=== PATIENT | male | born 1945 | race Caucasian/White ===

== ENCOUNTER → 2016-06-30 | Outpatient (CLI) | payer MEDICARE, OTHER ==
--- NOTE | 2016-06-30 11:09 | RAD ---
Bilateral lower extremity arterial ultrasound, 06/30/2016: History: Peripheral vascular disease, diabetes, hypertension Duplex evaluation of the major arteries in the right lower extremity was performed including grayscale, color-flow and spectral Doppler analysis. There are mild to moderate scattered, partially calcified atherosclerotic plaques bilaterally. On the right, the common femoral and superficial femoral arteries demonstrate biphasic Doppler waveforms. No significant focal velocity acceleration is seen on those vessels to suggest high-grade focal stenosis. The popliteal artery also demonstrates a biphasic Doppler waveform. In the right lower leg the peroneal artery could not be visualized. The posterior tibial Doppler waveform is monophasic. It is quite dampened distally. The right anterior tibial Doppler waveform is biphasic. The right dorsalis pedis artery is patent demonstrating a monophasic Doppler waveform. On the left, the common femoral and superficial femoral arteries demonstrate biphasic Doppler waveforms. No significant focal velocity acceleration is seen to suggest high-grade focal stenosis in those vessels. The left popliteal artery also demonstrates a biphasic Doppler waveform. In the left lower leg, patent anterior tibial, posterior tibial and peroneal arteries are visible demonstrating biphasic Doppler waveforms. The distal left posterior tibial Doppler waveform becomes monophasic. The left dorsalis pedis artery is patent demonstrating a monophasic Doppler waveform. IMPRESSION: 1. Mild to moderate scattered atherosclerotic plaquing bilaterally. 2. No duplex evidence of high-grade femoral-popliteal stenosis on either side. 3. Probable peroneal artery occlusion in the right lower leg. 4. Mild degradation of the distal Doppler waveforms, worse on the right.
== END | disposition home or self-care (01) ==
LOC: US 08:40
PROVIDERS: ATTEND Family Medicine
DX: Z00.01 Encounter for general adult medical examination with abnormal findings (principal); I70.8 Atherosclerosis of other arteries; I73.89 Other specified peripheral vascular diseases; I10 Essential (primary) hypertension; E11.8 Type 2 diabetes mellitus with unspecified complications; E71.19 Other disorders of branched-chain amino-acid metabolism; Z87.891 Personal history of nicotine dependence
CPT/HCPCS: 93925

== ENCOUNTER → 2017-06-04 | Outpatient (CLI) | payer MEDICARE, OTHER ==
--- NOTE | 2017-06-05 09:20 | RAD ---
Bilateral lower extremity arterial ultrasound, 06/04/2017: History: Peripheral vascular disease Duplex evaluation of the major arteries in both lower extremities was performed including grayscale, color-flow and spectral Doppler analysis. There are moderately severe scattered atherosclerotic plaques bilaterally. The right common femoral artery demonstrates a biphasic Doppler waveform with a peak systolic velocity of 283 cm/s. Color imaging demonstrates moderate plaquing to this region. The right femoral Doppler waveform becomes monophasic at and distal to the mid femoral artery level. No specific focal high-grade femoral-popliteal stenosis was identified. Patent anterior tibial, posterior tibial and peroneal arteries are present in the right lower leg demonstrating monophasic Doppler waveforms. The right dorsalis pedis Doppler waveform is also monophasic. On the left, the common femoral Doppler waveform is triphasic. The peak systolic velocity at that level is 183 cm/s. The left femoral Doppler waveform becomes monophasic at and distal to the upper thigh level. No high-grade focal femoral-popliteal stenosis is identified on the left. Patent posterior tibial and anterior tibial arteries are evident in the left lower leg demonstrating monophasic Doppler waveforms. A patent peroneal artery could not be visualized. The left dorsalis pedis artery is patent with a monophasic Doppler waveform. A high velocity 191 cm/s was identified in the left dorsalis pedis artery suggesting moderate stenosis at that level. IMPRESSION: 1. Moderately severe scattered atherosclerotic plaquing bilaterally. 2. Elevated velocity in the right common femoral artery raises the possibility of moderate stenosis at that level. 3. Degradation of the Doppler waveforms at and distal to the superficial femoral artery levels bilaterally. 4. No focal high-grade femoral-popliteal stenosis was identified.. 5. Occlusion of the peroneal artery in the left lower leg. 6. Moderate focal stenosis in the left dorsalis pedis artery.
== END | disposition home or self-care (01) ==
LOC: US 13:32
PROVIDERS: ATTEND Family Medicine
DX: I70.202 Unspecified atherosclerosis of native arteries of extremities, left leg (principal)
CPT/HCPCS: 93925

== ENCOUNTER → 2017-07-17 | Outpatient (CLI) | payer MEDICARE, OTHER ==
--- NOTE | 2017-07-17 13:03 | RAD ---
EXAM: Dual energy x-ray absorptiometry (DEXA). HISTORY: 9-year-old male presents with a fracture. COMPARISON: 08/01/2011. TECHNIQUE: Dual energy x-ray absorptiometry of the lumbar spine and right hip was performed. Calculation of bone mineral density based on standard deviations above or below the expected young adult normal value (T-score) was completed. FINDINGS: The average bone mineral density in the 1st through 4th lumbar vertebrae is 1.126 g/cmxcm, corresponding with a T-score of -0.8. There has been a 1.0% decrease in density of the lumbar spine compared to the prior study. The average total bone mineral density in the right femoral neck is 0.802 g/cmxcm, corresponding with a T-score of -2.1. IMPRESSION: 1. Normal bone mineral density measured at the lumbar spine. 2. Osteopenia measured at the right femoral neck. Note: Definitions established by the World Health Organization: 1. Normal: T-score is -1.0 or above. 2. Osteopenia: T-score is between -1.0 and -2.5 . 3. Osteoporosis: T-score is -2.5 or below. Electronically signed by: Dunia Lozoya MD (07/17/2017 12:59 PM) [facility]
== END | disposition home or self-care (01) ==
LOC: DXRAD 10:17
PROVIDERS: ATTEND Family Medicine
DX: Z13.820 Encounter for screening for osteoporosis (principal); M85.89 Other specified disorders of bone density and structure, multiple sites; E11.69 Type 2 diabetes mellitus with other specified complication; E11.65 Type 2 diabetes mellitus with hyperglycemia
CPT/HCPCS: 77080

== ENCOUNTER → 2018-02-19 | Outpatient (CLI) | payer MEDICARE, OTHER ==
--- NOTE | 2018-02-19 14:32 | CARD ---
MR#: [id number] Date of Study: 02/19/2018 Ordering Physician: CASI SU, Referring Physician: CASI SU, Tech: Tatiana Guerra OLGA APPROVED REPORT EXAM: Two-dimensional and M-mode echocardiogram with Doppler and color Doppler. Other Information Quality : Technically LimitedHR: 100bpm Rhythm : TachycardiaTechnically limited study due to body habitus. INDICATION Arrhythmia 2D DIMENSIONS RVDd3.2 (2.9-3.5cm)Left Atrium(2D)4.1 (1.6-4.0cm) IVSd1.0 (0.7-1.1cm)Aortic Root(2D)3.1 (2.0-3.7cm) LVDd6.3 (3.9-5.9cm)LVOT Diameter2.2 (1.8-2.4cm) PWd1.1 (0.7-1.1cm)LVDs5.3 (2.5-4.0cm) FS (%) 15.4 %SV64.6 ml LVEF(%)31.9 (>50%) M-Mode DIMENSIONS Left Atrium(MM)4.77 (2.5-4.0cm)Aortic Root3.47 (2.2-3.7cm) Aortic Valve AoV Peak Checo.143.2cm/sAoV VTI28.7cm AO Peak GR.8.2mmHgLVOT Peak Checo.88.3cm/s LVOT VTI 17.42cmAO Mean GR.4mmHg HEATHER (VMAX)2.27fj0VXI (VTI)2.33cm2 Mitral Valve MV E Eqcurcdp02.5cm/sMV DECEL [id number] MV A Xdvvtdjf099.2cm/sE/A Ratio0.7 MV A Dcosrymv99hh Pulmonary Valve PV Peak Vgdxpkwl191.4cm/sPV Peak Grad.4mmHg LEFT VENTRICLE The Left Ventricle is mildly dilated. There is normal left ventricular wall thickness. The left ventr icular systolic function is moderately impaired. The Ejection Fraction is 35%. Abnormal septal motion probably from conduction abnormality. Transmitral Doppler flow pattern is Grade I-abnormal relaxatio n pattern. RIGHT VENTRICLE The right ventricle is normal size. There is normal right ventricular wall thickness. The right ventr icular systolic function is normal. ATRIA The left atrium is moderately dilated. The right atrium is mildly dilated. The interatrial septum is intact with no evidence for an atrial septal defect or patent foramen ovale as noted on 2-D or Dopple r imaging. AORTIC VALVE The aortic valve is normal in structure and function. The aortic valve is trileaflet. Doppler and Col or Flow revealed no significant aortic regurgitation. There is no significant aortic valvular stenosi s. MITRAL VALVE The mitral valve is normal in structure and function. There is no evidence of mitral valve prolapse. There is no mitral valve stenosis. Doppler and Color-flow revealed trace mitral regurgitation. TRICUSPID VALVE The tricuspid valve is normal in structure and function. Doppler and Color Flow revealed no tricuspid valve regurgitation noted. There is no tricuspid valve prolapse or vegetation. There is no tricuspid valve stenosis. PULMONIC VALVE Pulmonic valve not well visualized. GREAT VESSELS The aortic root is normal in size. The ascending aorta is normal in size. The IVC is normal in size a nd collapses >50% with inspiration. PERICARDIAL EFFUSION There is no evidence of significant pericardial effusion. Critical Notification Critical Value: No <Conclusion> The left ventricular systolic function is moderately impaired. The Ejection Fraction is 35%. Abnormal septal motion probably from conduction abnormality. Transmitral Doppler flow pattern is Grade I-abnormal relaxation pattern. The left atrium is moderately dilated. Doppler and Color-flow revealed trace mitral regurgitation. There is no evidence of significant pericardial effusion. Signed by : Juanito Iglesias, Electronically Approved : 02/19/2018 14:30:01
== END | disposition home or self-care (01) ==
LOC: ECHO 12:35
PROVIDERS: ATTEND Family Medicine
DX: R00.8 Other abnormalities of heart beat (principal)
CPT/HCPCS: 93306

== ENCOUNTER → 2018-02-28 | Outpatient (CLI) | payer MEDICARE, OTHER ==
--- NOTE | 2018-03-01 08:21 | RAD ---
Renal ultrasound, 02/28/2018: HISTORY: Chronic kidney disease The right kidney measures 10.7 cm in length while left kidney measures 11.3 cm. There is no evidence of hydronephrosis. There appear to be 2 tiny parapelvic renal cysts on the left, the largest of which measures 1.4 cm. The renal parenchymal echogenicity is within normal limits. The partially filled urinary bladder is unremarkable. IMPRESSION: 1. Small left renal cysts. 2. No evidence of renal obstruction. Electronically signed by: Hunter Davison MD (03/01/2018 8:16 AM) [facility]
== END | disposition home or self-care (01) ==
LOC: US 14:46
PROVIDERS: ATTEND Internal Medicine Nephrology
DX: I12.9 Hypertensive chronic kidney disease with stage 1 through stage 4 chronic kidney disease, or unspecified chronic kidney disease (principal); E11.22 Type 2 diabetes mellitus with diabetic chronic kidney disease; N18.3 Chronic kidney disease, stage 3 (moderate); N28.1 Cyst of kidney, acquired
CPT/HCPCS: 76770

== ENCOUNTER 2018-06-01 17:38 | Emergency (ER) | payer MEDICARE, OTHER ==
[~2018-06-01] VITALS: Ht 180.3 cm; Wt 128.4 kg
[2018-06-01 17:40] VITALS: BP 163/77
--- NOTE | 2018-06-01 17:56 | ED.ADGEN ---
Past History Past Medical History: CAD, CHF, Diabetes, Hypertension, Other Past Surgical History: Pacemaker Smoking: Quit Greater Than 1 Year Adult General Chief Complaint Chief Complaint ".. I got this pacer thing put in on 05/28/18.. and now the suture line is draining.. and the area under the tape is red..." HPI HPI Patient is a 73 year old male who presents with visit for wound check. Area of ICD implantation is red and inflamed. Serous/ bloody discharge from suture line. No striations to the rest of the chest no adenopathy. Area around implantation not unduly tender. Patient has known diabetes, CHF, hypertension and coronary artery disease. Patient normally follows with Dr. Masterson. OpSite dressing removed and area cleaned. Replace the sterile gauze to sore be continued drainage. Will start on Bactrim DS twice a day. Must call Sunday morning for a follow-up and recheck of ICD implantation site. Review of Systems Review of Systems Constitutional: Denies fever or chills [] Eyes: Denies change in visual acuity, redness, or eye pain [] HENT: Denies nasal congestion or sore throat [] Respiratory: Denies cough or shortness of breath [] Cardiovascular: No additional information not addressed in HPI [] GI: Denies abdominal pain, nausea, vomiting, bloody stools or diarrhea [] : Denies dysuria or hematuria [] Musculoskeletal: Denies back pain or joint pain [] Integument: Denies rash or skin lesions []drainage and inflammation at ICD site Neurologic: Denies headache, focal weakness or sensory changes [] Endocrine: Denies polyuria or polydipsia [] All other systems were reviewed and found to be within normal limits, except as documented in this note. Family History Family History Noncontributory Current Medications Current Medications Current Medications Medications (Trade) Dose Ordered Sig/Kendrick Start Time Stop Time Status Last Admin Dose Admin Diphtheria/ Tetanus/Acell Pertussis (Boostrix) 0.5 ml ONCE ONCE 06/01/18 19:30 06/01/18 19:32 DC Trimethoprim/ Sulfamethoxazole (Bactrim Ds) 1 tab 1X ONCE 06/01/18 18:30 06/01/18 18:32 DC 06/01/18 19:00 1 TAB Allergies Allergies Allergies Coded Allergies Type Severity Reaction Last Updated Verified lisinopril Allergy Severe RASH 04/18/18 Yes Physical Exam Physical Exam Constitutional: , no acute distress, non-toxic appearance. [] HENT: Normocephalic, atraumatic, bilateral external ears normal, oropharynx moist, no oral exudates, nose normal. [] Eyes: PERRLA, EOMI, conjunctiva normal, no discharge. [] Glasses. Neck: Normal range of motion, no tenderness, supple, no stridor. More than 17 inches circumference] Cardiovascular:Heart rate regular rhythm, HI to the left Lungs & Thorax: Bilateral breath sounds equal apex on auscultation. ICD implant site appears to be inflamed and draining. Abdomen: Bowel sounds normal, soft, no tenderness, no masses, no pulsatile masses. [] Obese Skin: Warm, dry, no erythema, no rash. [] Back: No tenderness, no CVA tenderness. [] Extremities: No tenderness, no cyanosis, no clubbing, ROM intact ,ankle edema. [] Pretty changes Neurologic: Alert and oriented X 3, normal motor function, distal sensory function, no focal deficits noted. [] Psychologic: Affect anxious, judgement normal, mood normal. [] Current Patient Data Vital Signs Vital Signs Date Time Temp Pulse Resp B/P (MAP) Pulse Ox O2 Delivery O2 Flow Rate FiO2 06/01/18 17:40 98.1 99 24 94 Room Air Lab Results Laboratory Tests Test 06/01/18 18:45 White Blood Count 10.3 x10^3/uL (4.0-11.0) Red Blood Count 4.48 x10^6/uL (4.30-5.70) Hemoglobin 12.8 g/dL (13.0-17.5) L Hematocrit 38.4 % (39.0-53.0) L Mean Corpuscular Volume 86 fL (79-100) Mean Corpuscular Hemoglobin 29 pg (25-35) Mean Corpuscular Hemoglobin Concent 33 g/dL (31-37) Red Cell Distribution Width 16.0 % (11.5-14.5) H Platelet Count 289 x10^3/uL (140-400) Neutrophils (%) (Auto) 69 % (31-73) Lymphocytes (%) (Auto) 19 % (24-48) L Monocytes (%) (Auto) 6 % (0-9) Eosinophils (%) (Auto) 4 % (0-3) H Basophils (%) (Auto) 1 % (0-3) Neutrophils # (Auto) 7.1 x10^3uL (1.8-7.7) Lymphocytes # (Auto) 2.0 x10^3/uL (1.0-4.8) Monocytes # (Auto) 0.6 x10^3/uL (0.0-1.1) Eosinophils # (Auto) 0.4 x10^3/uL (0.0-0.7) Basophils # (Auto) 0.1 x10^3/uL (0.0-0.2) Erythrocyte Sedimentation Rate 80 (0-15) H Sodium Level 139 mmol/L (136-145) Potassium Level 4.4 mmol/L (3.5-5.1) Chloride Level 105 mmol/L (98-107) Carbon Dioxide Level 26 mmol/L (21-32) Anion Gap 8 (6-14) Blood Urea Nitrogen 24 mg/dL (8-26) Creatinine 1.6 mg/dL (0.7-1.3) H Estimated GFR (Cockcroft-Gault) 42.8 Glucose Level 217 mg/dL (70-99) H Calcium Level 8.6 mg/dL (8.5-10.1) EKG EKG [] Radiology/Procedures Radiology/Procedures [] Course & Med Decision Making Course & Med Decision Making Pertinent Labs and Imaging studies reviewed. (See chart for details) Patient to call for a follow-up appointment with primary and cardiology on Sunday. If dressing becomes soaked replaced with sterile gauze and paper tape. Take Bactrim DS twice a day. Return if any concerns. [] Final Impression Final Impression 1. Inflammation at ICD implant site- infection versus normal granulation versus allergic reaction to op site or tape. 2. Iszpqp18.8 3. DM Glucose 217 (Ate just before arrival) 4. Elev. Creat. 1.6 5. Elevated Sed Rate -80 Dragon Disclaimer Dragon Disclaimer This electronic medical record was generated, in whole or in part, using a voice recognition dictation system. Dragon Disclaimer This chart was dictated in whole or in part using Voice Recognition software in a busy, high-work load, and often noisy Emergency Department environment. It may contain unintended and wholly unrecognized errors or omissions. Discharge Summary Visit Information Final Diagnosis Problems Medical Problems: (1) Visit for wound check Status: Acute Brief Hospital Course Allergies Allergies Coded Allergies Type Severity Reaction Last Updated Verified lisinopril Allergy Severe RASH 04/18/18 Yes Vital Signs Vital Signs Date Time Temp Pulse Resp B/P (MAP) Pulse Ox O2 Delivery O2 Flow Rate FiO2 06/01/18 17:40 98.1 99 24 94 Room Air Lab Results Laboratory Tests Test 06/01/18 18:45 White Blood Count 10.3 x10^3/uL (4.0-11.0) Red Blood Count 4.48 x10^6/uL (4.30-5.70) Hemoglobin 12.8 g/dL (13.0-17.5) Hematocrit 38.4 % (39.0-53.0) Mean Corpuscular Volume 86 fL (79-100) Mean Corpuscular Hemoglobin 29 pg (25-35) Mean Corpuscular Hemoglobin Concent 33 g/dL (31-37) Red Cell Distribution Width 16.0 % (11.5-14.5) Platelet Count 289 x10^3/uL (140-400) Neutrophils (%) (Auto) 69 % (31-73) Lymphocytes (%) (Auto) 19 % (24-48) Monocytes (%) (Auto) 6 % (0-9) Eosinophils (%) (Auto) 4 % (0-3) Basophils (%) (Auto) 1 % (0-3) Neutrophils # (Auto) 7.1 x10^3uL (1.8-7.7) Lymphocytes # (Auto) 2.0 x10^3/uL (1.0-4.8) Monocytes # (Auto) 0.6 x10^3/uL (0.0-1.1) Eosinophils # (Auto) 0.4 x10^3/uL (0.0-0.7) Basophils # (Auto) 0.1 x10^3/uL (0.0-0.2) Erythrocyte Sedimentation Rate 80 (0-15) Sodium Level 139 mmol/L (136-145) Potassium Level 4.4 mmol/L (3.5-5.1) Chloride Level 105 mmol/L (98-107) Carbon Dioxide Level 26 mmol/L (21-32) Anion Gap 8 (6-14) Blood Urea Nitrogen 24 mg/dL (8-26) Creatinine 1.6 mg/dL (0.7-1.3) Estimated GFR (Cockcroft-Gault) 42.8 Glucose Level 217 mg/dL (70-99) Calcium Level 8.6 mg/dL (8.5-10.1) Brief Hospital Course Mr. Beck is a 73 old male who presented with wound check ICD site. Possible normal granulation and drainage, inflammation from OpSite and tape, infection. Change to gauze dressing to absorb drainage and started on Bactrim. Patient to call cardiology morning for recheck of site. Return if any problems Discharge Information Condition at Discharge: Improved, Stable Disposition/Orders: D/C to Home Dischare Medications Current Medications Trimethoprim/ Sulfamethoxazole (Bactrim Ds) 1 tab 1X ONCE PO Last administered on 06/01/18at 19:00; Admin Dose 1 TAB; Start 06/01/18 at 18:30; Stop 06/01/18 at 18:32; Status DC Diphtheria/ Tetanus/Acell Pertussis (Boostrix) 0.5 ml ONCE ONCE VAX IM ; Start 06/01/18 at 19:30; Stop 06/01/18 at 19:32; Status DC Active Scripts Active Bactrim Ds Tablet (Sulfamethoxazole/Trimethoprim) 1 Each Tablet 1 Tab PO BID KAUR CLAROS MD Jun 01, 2018 17:56
[2018-06-01] MEDS: SMZ/TMP 800/160MG TABLET. PO ONE (19:00)
[2018-06-01] MEDS ORDERED: SULF1TAB24 PO (19:00)
[2018-06-01 19:02] LABS: BASO # 0.1 x10^3/uL (0.0-0.2); BASO % 1 % (0-3); EOS # 0.4 x10^3/uL (0.0-0.7); EOS % 4 % (0-3); HEMATOCRIT 38.4 % (39.0-53.0); HEMOGLOBIN 12.8 g/dL (13.0-17.5); LYMPH % 19 % (24-48); MEAN CORPUSCULAR HEMOGLOBIN 29 pg (25-35); MEAN CORPUSCULAR HGB CONC 33 g/dL (31-37); MEAN CORPUSCULAR VOLUME 86 fL (79-100); MONO # 0.6 x10^3/uL (0.0-1.1); MONO % 6 % (0-9); NEUT # 7.1 x10^3uL (1.8-7.7); NEUT % 69 % (31-73); PLATELET COUNT 289 x10^3/uL (140-400); RED BLOOD COUNT 4.48 x10^6/uL (4.30-5.70); WHITE BLOOD COUNT 10.3 x10^3/uL (4.0-11.0)
[2018-06-01 19:13] LABS: CALCIUM 8.6 mg/dL (8.5-10.1); CREATININE 1.6 mg/dL (0.7-1.3); GFR 42.8; POTASSIUM 4.4 mmol/L (3.5-5.1)
[2018-06-01] MEDS: DIPHTH,PERTUSS(ACELL),TET TOX 0.5 ML DISP.SYRIN. VAX IM ONE (19:22)
[2018-06-01 20:11] LABS: SEDIMENTATION RATE 80 (0-15)
== END 2018-06-01 19:40 | disposition home or self-care (01) ==
LOC: ER 17:38
DX: T82.7XXA Infection and inflammatory reaction due to other cardiac and vascular devices, implants and grafts, initial encounter (principal); D64.9 Anemia, unspecified; R79.82 Elevated C-reactive protein (CRP); R70.0 Elevated erythrocyte sedimentation rate; I11.0 Hypertensive heart disease with heart failure; I50.9 Heart failure, unspecified; I25.10 Atherosclerotic heart disease of native coronary artery without angina pectoris; Z95.0 Presence of cardiac pacemaker; Z87.891 Personal history of nicotine dependence; Z88.8 Allergy status to other drugs, medicaments and biological substances
CPT/HCPCS: 36415; 80048; 85025; 85651; 87040; 99283; 99284; 99285

== ENCOUNTER → 2020-05-06 | Outpatient (CLI) | payer MEDICARE, OTHER ==
[~2020-05-06] MED LIST: SULF1TAB24 PO
--- NOTE | 2020-05-06 16:36 | RAD ---
CT LOW DOSE LUNG SCREEN History: History of smoking. Shortness of breath. Technique: Noncontrast CT of the chest was performed. Coronal and sagittal reconstructions were perfo rmed. Exposure: One or more of the following individualized dose reduction techniques were utilized for thi s examination: 1. Automated exposure control 2. Adjustment of the mA and/or kV according to patient size 3. Use of iterative reconstruction technique. Comparison: None Findings: Chest: Small mediastinal and hilar lymph nodes. Coronary artery calcifications. Mild atheromatous kit que within the aorta. Minimal pericardial effusion. No pathologically enlarged lymph nodes. Bilateral gynecomastia. Multinodular thyroid largest nodule on the right measures 2.6 cm. No consolidation or pleural effusion. No pneumothorax. Mild pulmonary emphysema. Mild lingular and le ft lower lobe compressive atelectasis. 2 mm right lower lobe pulmonary nodule (series 2 image 193), potentially mucus plugging within adjace nt bronchus. 2 mm right lower lobe pulmonary nodule (image 216). Upper abdomen: The imaged upper abdomen is unremarkable. Bones: No pathologic osseous lesions. Impression: 1. Small pulmonary nodules. Lung RADS 2. Recommend continued annual low-dose screening CT in [address] [place] [address]. 2. Multinodular thyroid. Recommended ultrasound to further evaluate. 3. Bilateral gynecomastia. Electronically signed by: Felipe Ríos DO (05/06/2020 4:34 PM) [id number]
== END ==
LOC: CT 14:16
PROVIDERS: ATTEND Family Medicine
DX: R91.1 Solitary pulmonary nodule (principal); E04.2 Nontoxic multinodular goiter; N62 Hypertrophy of breast; Z87.891 Personal history of nicotine dependence
CPT/HCPCS: 71271

== ENCOUNTER → 2020-05-25 | Outpatient (CLI) | payer MEDICARE, OTHER ==
--- NOTE | 2020-05-25 11:43 | RAD ---
EXAM: Thyroid sonogram. HISTORY: Thyroid nodule. TECHNIQUE: Sonographic imaging of the thyroid was performed. COMPARISON: None. FINDINGS: The exam is limited due to patient body habitus and respiratory motion. The right thyroid l obe measures 5.5 x 2.3 x 3.0 cm. The left thyroid lobe measures 5.1 x 1.7 x 2.2 cm. The thyroid isthm us measures 8 mm. There is a 2.5 cm cyst within the inferior right thyroid lobe. There is a solid isoechoic nodule with slight hypoechoic rim and small cystic component within the mid right thyroid lobe measuring 1.5 x 1 .3 x 1.3 cm. This is taller than wide and demonstrates an ill-defined posterior margin. There is a solid slightly hyperechoic circumscribed nodule with hypoechoic rim within the mid left th yroid lobe measuring 1.0 x 1.0 x 0.8 cm. There is a solid circumscribed hypoechoic nodule within the inferior left thyroid lobe measuring 2.1 x 1.7 x 1.0 cm. IMPRESSION: 1. 2.1 cm nodule within the inferior left thyroid lobe. TI-RADS Category 4: FNA is recommended. 2. 1.5 cm nodule within the mid right thyroid lobe. TI-RADS Category 4: FNA is recommended. 3. 1.0 cm nodule within the mid left thyroid lobe. TI-RADS Category 3: Sonographic follow-up is recom mended. 4. Benign cyst within the inferior right thyroid lobe. 5. Note is made that the exam is limited due to body habitus and respiratory motion. There is no prio r study to assess for comparison at the time of dictation. An addendum to this report will be submitt ed if prior studies become available. Electronically signed by: Dunia Lozoya MD (05/25/2020 11:40 AM) [id number]
== END ==
LOC: US 10:44
PROVIDERS: ATTEND Family Medicine
DX: E04.2 Nontoxic multinodular goiter (principal)
CPT/HCPCS: 76536

== ENCOUNTER → 2020-09-28 | Outpatient (CLI) | payer MEDICARE, OTHER ==
--- NOTE | 2020-09-29 13:37 | CARD ---
MR#: [id number] Date of Study: 09/28/2020 Ordering Physician: DES DALE, Referring Physician: DES DALE, Tech: Sandra Sanchez [facility] APPROVED REPORT EXAM: Two-dimensional and M-mode echocardiogram with Doppler and color Doppler. Other Information Quality : FairHR: 76bpm Technically limited study due to body habitus. INDICATION Cardiomyopathy Surgery/Intervention Pacemaker: RISK FACTORS Hypertension Hyperlipidemia Diabetes 2D DIMENSIONS Left Atrium(2D)3.9 (1.6-4.0cm)IVSd1.1 (0.7-1.1cm) Aortic Root(2D)3.3 (2.0-3.7cm)LVDd6.1 (3.9-5.9cm) LVOT Diameter2.1 (1.8-2.4cm)PWd1.2 (0.7-1.1cm) LVDs4.6 (2.5-4.0cm)FS (%) 34.1 % SV155.6 mlLVEF(%)61.7 (>50%) Aortic Valve AoV Peak Checo.160.3cm/sAoV VTI33.3cm AO Peak GR.10.3mmHgLVOT Peak Checo.112.2cm/s LVOT VTI 24.19cmAO Mean GR.5mmHg HEATHER (VMAX)2.38oz5AJL (VTI)2.41cm2 Mitral Valve MV E Vrpemkfm36.9cm/sMV E Peak Gr.4mmHg MV DECEL [id number] A Pxzzrrwc16.7cm/s MV E Mean Gr.2mmHgE/A Ratio0.6 Pulmonary Valve PV Peak Rpjtoylo01.8cm/sPV Peak Grad.4mmHg Tricuspid Valve TR P. [id number]/sRAP [id number] TR Peak Gr.17ruZeQQIK80jzDc LEFT VENTRICLE The Left Ventricle is mildly dilated. There is mild concentric left ventricular hypertrophy. The syst olic function is severely impaired. EF 30%. There is global hypokinesis of the left ventricle. The an terior wall/septum is akinetic. Transmitral Doppler flow pattern is Grade I-abnormal relaxation patte rn. RIGHT VENTRICLE The right ventricle is normal size. There is normal right ventricular wall thickness. The right ventr icular systolic function is normal. ATRIA The left atrium is mildly dilated. The right atrium size is normal. The interatrial septum is intact with no evidence for an atrial septal defect or patent foramen ovale as noted on 2-D or Doppler imagi ng. AORTIC VALVE The aortic valve is normal in structure and function. Doppler and Color Flow revealed no significant aortic regurgitation. There is no significant aortic valvular stenosis. Calculated aortic valve area is 2.4 cm2 with maximum pressure gradient of 11 mmHg and mean pressure gradient of 6 mmHg. MITRAL VALVE The mitral valve is normal in structure and function. There is no evidence of mitral valve prolapse. There is no mitral valve stenosis. Doppler and Color-flow revealed trace mitral regurgitation. TRICUSPID VALVE The tricuspid valve is normal in structure and function. Doppler and Color Flow revealed trace tricus pid regurgitation with an estimated PAP of 24 mmHg. There is no tricuspid valve stenosis. PULMONIC VALVE The pulmonic valve is not well visualized. Doppler and Color Flow revealed no pulmonic valvular regur gitation. There is no pulmonic valvular stenosis. GREAT VESSELS The aortic root is normal in size. The ascending aorta is normal in size. The IVC is normal in size a nd collapses >50% with inspiration. PERICARDIAL EFFUSION There is no evidence of significant pericardial effusion. Critical Notification Critical Value: No <Conclusion> The systolic function is severely impaired. EF 30%. There is global hypokinesis of the left ventricle. The anterior wall/septum is akinetic. Signed by : King Arita, Electronically Approved : 09/29/2020 13:36:54
== END ==
LOC: ECHO 12:51
PROVIDERS: ATTEND Internal Medicine Cardiovascular Disease
DX: I51.7 Cardiomegaly (principal); I25.10 Atherosclerotic heart disease of native coronary artery without angina pectoris; I42.9 Cardiomyopathy, unspecified; I10 Essential (primary) hypertension; E11.9 Type 2 diabetes mellitus without complications; E78.5 Hyperlipidemia, unspecified
CPT/HCPCS: 93306